=== PATIENT | male | born 1985 | race Caucasian/White ===

== ENCOUNTER 2016-08-24 21:57 | Emergency (ER) | payer OTHER ==
[~2016-08-24] VITALS: Ht 177.8 cm; Wt 68.2 kg
[2016-08-24] MEDS ORDERED: CYCL10 PO (22:08)
[2016-08-24] MEDS ORDERED: MELO-273 PO (22:08)
[2016-08-25] MEDS ORDERED: MORPHINE SULFATE 4 MG/ML SYRINGE IM ONE (01:45)
[2016-08-25] MEDS ORDERED: DIAZEPAM 5 MG/ML 2 ML SYRINGE IM ONE (01:45)
[2016-08-25 02:50] VITALS: BP 119/73
== END 2016-08-25 02:54 | disposition home or self-care (01) ==
LOC: EMS 22:01
DX: M54.41 Lumbago with sciatica, right side (principal)
CPT/HCPCS: 96372; 99284; J1885; J2270

== ENCOUNTER 2017-01-07 11:24 | Emergency (ER) | payer SELFPAY ==
[~2017-01-07] VITALS: Ht 167.6 cm; Wt 73.6 kg
[~2017-01-07 11:24] MED LIST: CYCL10 PO; MELO-107 PO
[2017-01-07 13:09] VITALS: BP 125/68
== END 2017-01-07 14:01 | disposition home or self-care (01) ==
LOC: EMS 11:25
DX: S16.1XXA Strain of muscle, fascia and tendon at neck level, initial encounter (principal); S46.912A Strain of unspecified muscle, fascia and tendon at shoulder and upper arm level, left arm, initial encounter; F17.210 Nicotine dependence, cigarettes, uncomplicated; V49.40XA Driver injured in collision with unspecified motor vehicles in traffic accident, initial encounter; Y93.89 Activity, other specified; Y92.89 Other specified places as the place of occurrence of the external cause; Y99.8 Other external cause status
CPT/HCPCS: 99282

== ENCOUNTER 2017-05-18 22:49 | Emergency (ER) | payer SELFPAY ==
[~2017-05-18] VITALS: Ht 172.7 cm; Wt 68.2 kg
[2017-05-19] MEDS ORDERED: CYCLOBENZAPRINE HCL 10 MG TABLET PO ONE
[2017-05-19] MEDS ORDERED: BACITRACIN 0.9 GM PACKET OINTMENT TP ONE
[2017-05-19] MEDS ORDERED: ACETAMINOPHEN/CODEINE 300-15 MG TABLET PO ONE
[2017-05-19] MEDS ORDERED: KETOROLAC TROMETHAMINE 60 MG/2 ML VIAL IM ONE
[2017-05-19] MEDS ORDERED: PERTUSS(ACELL),DIPH,TET VAC/PF 0.5 ML VIAL IM ONE
[2017-05-19 00:30] VITALS: BP 124/76
== END 2017-05-19 00:50 | disposition home or self-care (01) ==
LOC: EMS 22:50
DX: S86.811A Strain of other muscle(s) and tendon(s) at lower leg level, right leg, initial encounter (principal); S80.811A Abrasion, right lower leg, initial encounter; M54.5 Low back pain; G89.29 Other chronic pain; F17.210 Nicotine dependence, cigarettes, uncomplicated; X50.0XXA Overexertion from strenuous movement or load, initial encounter; Y93.89 Activity, other specified; Y92.89 Other specified places as the place of occurrence of the external cause; Y99.8 Other external cause status
CPT/HCPCS: 73562; 90471; 90715; 96372; 99284; 99406; J1885